=== PATIENT | male | born 1980 | race Two or more races ===

== ENCOUNTER 2017-12-09 17:11 | Emergency (ER) | payer BC, OTHER ==
[~2017-12-09] VITALS: Ht 170.2 cm; Wt 69.9 kg
[2017-12-09 17:15] VITALS: BP 106/63
[2017-12-09] MEDS ORDERED: HYDROcodone/Acetamin 7.5/325 tab ORAL ONE (17:45)
--- NOTE | 2017-12-09 17:59 | Emergency Room Report ---
History of Present Illness General Chief Complaint: Multiple Trauma/Fall Source: Patient Present Illness HPI 37-year-old male presents to the emergency department complaining of 3/10 in severity right hand pain with swelling and bruising x2 days. Patient reports that he was walking tearing his laptop when he slipped and fell backwards and landed on his hand in a fist-like position. Patient denies previous injury to the extremity. Denies neck or back pain. Denies loss of consciousness. Denies numbness tingling or loss of sensation or gross motor movements of the extremities, incontinence of bowel or bladder. Denies CP, Palpitations, LOC, AMS , dizziness, Changes in Vision, Sensation, paresthesias, or a sudden severe headache. Allergies: Coded Allergies: No Known Allergies (Unverified , 12/09/17) Patient History Past Medical History: see triage record Past Surgical History: none Pertinent Family History: none Reviewed Nursing Documentation: PMH: Agreed, PSxH: Agreed Nursing Documentation-PMH Past Medical History: No Stated History Review of Systems All Other Systems: negative except mentioned in HPI Physical Exam Vital Signs Date Time Temp Pulse Resp B/P (MAP) Pulse Ox O2 Delivery O2 Flow Rate FiO2 12/09/17 17:15 98.5 92 18 106/63 99 Room Air 98.4 Sp02 EP Interpretation: reviewed, normal General Appearance: no apparent distress, alert, GCS 15, non-toxic Head: normocephalic, atraumatic ENT: hearing grossly normal, normal voice Neck: full range of motion Respiratory: lungs clear, normal breath sounds, speaking full sentences Cardiovascular #1: regular rate, rhythm, normal capillary refill Musculoskeletal: back normal, gait/station normal, normal range of motion - with pain, swelling - right hand, tender - TTP to the lateral right hand, swelling and bruising noted dorsally. NVI Neurologic: alert, oriented x3, responsive, motor strength/tone normal, sensory intact, speech normal, grossly normal Psychiatric: judgement/insight normal Skin: no rash, warm/dry, well hydrated, other - contusion to the right dorsal hand and swelling noted involving the 5th metacarpal. Medical Decision Making PA Attestation Dr. Valdovinos is my supervising Physician whom patient management has been discussed with. Diagnostic Impression: Primary Impression: Hand fracture, right Qualified Codes: S62.91XA - Unspecified fracture of right wrist and hand, initial encounter for closed fracture ER Course Pt. presents to the ED c/o Right hand pain, swelling and tenderness. Ddx considered but are not limited to Fracture, dislocation, contusion, Sprain/ Strain/Spasm. Vital signs: are WNL, pt. is afebrile H&PE are most consistent with musculoskeletal injury will perform imaging to r/ o fractures/dislocations. ORDERS: - X-ray Right Hand 3 views - Positive for fx- proximal 5th metacarpal negative-- for Dislocation, or significant soft tissue injury, per preliminary read in ED, and signed by CHARLES Marquez, my supervising physician has reviewed, and agrees with my interpretation. ED INTERVENTIONS: - Tylenol PO - Ulnar Gutter Splint applied by technician anatomic pathology. Pt. remains neurovascularly intact. -- Right arm Sling applied by technician anatomic pathology. Pt. remains neurovascularly intact. DISCHARGE: At this time pt. is stable for d/c to home. Will provide printed patient care instructions, and any necessary prescriptions. Care plan and follow up instructions have been discussed with the patient prior to discharge. Other X-Ray Diagnostic Results Other X-Ray Diagnostic Results : X-Ray ordered: Right Hand # of Views/Limited Vs Complete: 1 View, 3 View Indication: Pain EP Interpretation: Yes PA Xray: Interpretation reviewed, by supervising MD, and agrees with findings. Interpretation: no dislocation, other - ST swelling, Fracture of proximal 5th metacarpal. Impression: Other - abnormal Electronically Signed by: Joycelyn Marquez PA-C Last Vital Signs Date Time Temp Pulse Resp B/P (MAP) Pulse Ox O2 Delivery O2 Flow Rate FiO2 12/09/17 17:15 98.5 92 18 106/63 99 Room Air 98.4 Disposition: HOME, SELF-CARE Condition: Stable Scripts Ibuprofen* (MOTRIN*) 600 Mg Tablet 600 MG ORAL THREE TIMES A DAY, #20 TAB 0 Refills Prov: Joycelyn Marquez PGin 12/09/17 Patient Instructions: Metacarpal Fracture Additional Instructions: Take medications as directed. Follow up with a Primary Care Provider in 3-5 days, even if your symptoms have resolved. --Please review list of primary care clinics, if you do not already have a primary care provider Return sooner to ED if new symptoms occur, or current symptoms become worse. - Please note that this Emergency Department Report was dictated using Dragon detention sergeant technology software, occasionally this can lead to erroneous entry secondary to interpretation by the dictation equipment. Joycelyn Marquez Dec 09, 2017 17:59
[2017-12-09] MEDS ORDERED: IBUPROFEN600 MG ORAL (18:20)
[2017-12-09 19:10] VITALS: BP 106/63
--- NOTE | 2017-12-10 10:47 | Diagnostic Imaging Report ---
Indication: Trauma and right hand pain Findings: 3 views of the right hand were obtained. There is an acute fracture at the base of the fifth metacarpal. Soft tissue swelling noted. IMPRESSION: Acute fifth metacarpal fracture
== END 2017-12-09 19:10 | disposition home or self-care (01) ==
LOC: EMR 19:00
DX: S62.316A Displaced fracture of base of fifth metacarpal bone, right hand, initial encounter for closed fracture (principal); W01.0XXA Fall on same level from slipping, tripping and stumbling without subsequent striking against object, initial encounter; Y92.9 Unspecified place or not applicable
CPT/HCPCS: 29125; 29240; 99283